=== PATIENT | male | born 1980 | race Two or more races ===

== ENCOUNTER 2016-11-14 10:08 | Emergency (ER) | payer OTHER, SELFPAY ==
[~2016-11-14] VITALS: Ht 175.3 cm; Wt 72.6 kg
[2016-11-14] MEDS ORDERED: NKM (10:19)
--- NOTE | 2016-11-14 11:48 | Emergency Room Report ---
History of Present Illness General Chief Complaint: Skin Rash/Abscess Source: Patient Present Illness HPI Patient states that he has bumps under both of his arms. The patient states this is been going on for several months. He has seen his primary care physician and they state they cannot do anything for him. He denies fever or chills. He has no other complaints or other rash. Allergies: Coded Allergies: No Known Allergies (Unverified , 02/09/14) Patient History Past Medical History: other - HCV Past Surgical History: none Reviewed Nursing Documentation: PMH: Agreed, PSxH: Agreed Nursing Documentation-PMH Past Medical History: No History, Except For Hx Cardiac Problems: No - Hep C Review of Systems All Other Systems: negative except mentioned in HPI Physical Exam Vital Signs Date Time Temp Pulse Resp B/P Pulse Ox O2 Delivery O2 Flow Rate FiO2 11/14/16 10:13 97.5 88 16 114/69 97 Room Air Sp02 EP Interpretation: reviewed, normal General Appearance: no apparent distress, alert, GCS 15, non-toxic Head: normocephalic, atraumatic Eyes: bilateral eye PERRL, bilateral eye normal inspection ENT: hearing grossly normal, normal pharynx, no angioedema, normal voice Neck: normal inspection Respiratory: no respiratory distress, no retraction, speaking full sentences Rectal: deferred Musculoskeletal: gait/station normal, normal range of motion Neurologic: alert, oriented x3, responsive, motor strength/tone normal, sensory intact, speech normal Psychiatric: judgement/insight normal, memory normal, mood/affect normal, no suicidal/homicidal ideation Skin: normal color, no rash, warm/dry, well hydrated, other - Multiple pea- sized nodules in the bilateral axilla consistent with mild folliculitis. Lymphatic: no adenopathy Medical Decision Making Diagnostic Impression: Primary Impression: Folliculitis barbae ER Course This patient has a non-inflammatories folliculitis the bilateral axilla. These lesions are very mild. There is no evidence of inflammation or infection. Patient was instructed on not using deodorant. I will go ahead and give a course of antibiotics to see if this will improve the patient's symptoms. Initially the patient followup with his primary care physician or x ray developer. I did not identify an emergency medical condition. The patient was given return precautions and followup instructions. Last Vital Signs Date Time Temp Pulse Resp B/P Pulse Ox O2 Delivery O2 Flow Rate FiO2 11/14/16 10:13 97.5 88 16 114/69 97 Room Air Disposition: HOME, SELF-CARE Condition: Stable TAWANDA URIBE D.O. Nov 14, 2016 11:48
[2016-11-14] MEDS ORDERED: DOXYCYCLINE MO100 MG ORAL (11:49)
[2016-11-14 12:00] VITALS: BP 110/74
== END 2016-11-14 12:15 | disposition home or self-care (01) ==
LOC: EMR 11:40
DX: L73.8 Other specified follicular disorders (principal); B19.20 Unspecified viral hepatitis C without hepatic coma
CPT/HCPCS: 99282